=== PATIENT | female | born 1995 | race Caucasian/White ===

== ENCOUNTER 2017-04-16 22:32 | Emergency (ER) | payer SELFPAY ==
[2017-04-16 22:40] VITALS: BP 128/57; PULSE 89; TEMP 98; BMI 51.3
[2017-04-17] MEDS ORDERED: AZITHROMYCIN 250 MG TABLET PO ONE (00:05)
[2017-04-17] MEDS ORDERED: predniSONE 20 MG TABLET (UD) PO ONE (00:05)
--- NOTE | 2017-04-17 00:05 | PDOC ---
History of Present Illness <LandonRomeliablanca Ríos - Last Filed: 04/17/17 01:13> - General History Source: Patient Exam Limitations: No Limitations - History of Present Illness Initial Comments: 04/17/17 01:24 Patient is a 21 year old female with a significant past medical history of who presents to the ED with complaints of cold symptoms that began earlier this week. Patient reports being diagnosed with upper Respiratory infection by physician last week. She reports experiencing episodes of super pubic discomfort and dysuria secondary to cold symptoms. Patient reports experiencing intermittent nonproductive cough with occasional clear sputum. Patient is worried that she is not over her respiratory infection and that she possibly might have a UTI. 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 Denies any trauma to head. Denies SOB, chest pain. Denies coughing, nausea. Denies hematuria, constipation, diarrhea. Denies contact with sick individuals, out of state travel. Denies any other symptoms. Allergies: None Social history: Current smoker (2 cigarettes per day). No alcohol. No illicit drugs. Surgical history: None PMD: None <Zach Davis - Last Filed: 04/17/17 01:25> - General Chief Complaint: Cold Symptoms Stated Complaint: COLD SYMPTOMS Time Seen by Provider: 04/16/17 23:43 Past History - Past Medical History COPD: No Other medical history: anxiety - Suicide/Smoking/Psychosocial Hx Smoking History: Current every day smoker Have you smoked in the past 12 months: No Number of Cigarettes Smoked Daily: 2 Information on smoking cessation initiated: No Hx Alcohol Use: Yes Drug/Substance Use Hx: No <Romelia Navarrete - Last Filed: 04/17/17 01:13> <Zach Davis - Last Filed: 04/17/17 01:25> - Past Medical History Allergies/Adverse Reactions: Allergies Allergy/AdvReac Type Severity Reaction Status Date / Time No Known Allergies Allergy Verified 04/16/17 22:42 Home Medications: Ambulatory Orders Dextroamphetamine/Amphetamine [Adderall 10 mg Tablet] 30 mg PO DAILY 04/16/17 Escitalopram Oxalate [Lexapro -] 20 mg PO BID 04/16/17 Sulfamethoxazole/Trimethoprim [Bactrim Ds -] 1 tab PO BID #14 tablet 04/17/17 Review of Systems - Review of Systems Able to Perform ROS?: Yes Comments:: 04/17/17 01:24 CONSTITUTIONAL: Absent: fever, chills, diaphoresis, generalized weakness, malaise, loss of appetite HEENT: Absent: rhinorrhea, nasal congestion, throat pain, throat swelling, difficulty swallowing, mouth swelling, ear pain, eye pain, visual Changes CARDIOVASCULAR: Absent: chest pain, syncope, palpitations, irregular heart rate, lightheadedness , peripheral edema RESPIRATORY: Absent: cough, shortness of breath, dyspnea with exertion, orthopnea, wheezing, stridor, hemoptysis GASTROINTESTINAL: Absent: abdominal pain, abdominal distension, nausea, vomiting, diarrhea, constipation, melena, hematochezia GENITOURINARY: Absent: dysuria, frequency, urgency, hesitancy, hematuria, flank pain, genital pain MUSCULOSKELETAL: Absent: myalgia, arthralgia, joint swelling SKIN: Absent: rash, itching, pallor HEMATOLOGIC/IMMUNOLOGIC: Absent: easy bleeding, easy bruising, lymphadenopathy, frequent infections ENDOCRINE: Absent: unexplained weight gain, unexplained weight loss, heat intolerance, cold intolerance NEUROLOGIC: Absent: headache, focal weakness or paresthesias, dizziness, unsteady gait, seizure, mental status changes, bladder or bowel incontinence PSYCHIATRIC: Absent: anxiety, depression, suicidal or homicidal ideation, hallucinations. All Other Systems: Reviewed and Negative <Zach Davis - Last Filed: 04/17/17 01:25> *Physical Exam - Vital Signs Last Vital Signs Temp Pulse Resp BP Pulse Ox 98 F 89 19 128/57 98 04/16/17 22:38 04/16/17 22:38 04/16/17 22:38 04/16/17 22:38 04/16/17 22:38 <Romelia Navarrete - Last Filed: 04/17/17 01:13> - Vital Signs Last Vital Signs Temp Pulse Resp BP Pulse Ox 98 F 89 19 128/57 98 04/16/17 22:38 04/16/17 22:38 04/16/17 22:38 04/16/17 22:38 04/16/17 22:38 - Physical Exam Comments: 04/17/17 01:25 GENERAL: Well developed, well nourished. Awake and alert. No acute distress. HEENT: Normocephalic, atraumatic. PERRLA, EOMI. No conjunctival pallor. Sclera are non- icteric. Moist mucous membranes. Oropharynx is clear. NECK: Supple. Full ROM. No JVD. Carotid pulses 2+ and symmetric, without bruits. No thyromegaly. No lymphadenopathy. CARDIOVASCULAR: Regular rate and rhythm. No murmurs, rubs, or gallops. Distal pulses are 2+ and symmetric. PULMONARY: No evidence of respiratory distress. Lungs clear to auscultation bilaterally. No wheezing, rales or rhonchi. ABDOMINAL: +Obese. Soft. Non-tender. Non-distended. No rebound or guarding. No organomegaly. Normoactive bowel sounds. MUSCULOSKELETAL Normal range of motion at all joints. No bony deformities or tenderness. No CVA tenderness. EXTREMITIES: No cyanosis. No clubbing. No edema. No calf tenderness. SKIN: Warm and dry. Normal capillary refill. No rashes. No jaundice. NEUROLOGICAL: Alert, awake, appropriate. Cranial nerves 2-12 intact. No deficits to light touch and temperature in face, upper extremities and lower extremities. No motor deficits in the in face, upper extremities and lower extremities. Normoreflexic in the upper and lower extremities. Normal speech. Toes are down-going bilaterally. Gait is normal without ataxia. PSYCHIATRIC: Cooperative. Good eye contact. Appropriate mood and affect. <Zach Davis - Last Filed: 04/17/17 01:25> ED Treatment Course - ADDITIONAL ORDERS Additional order review: Laboratory Results 04/17/17 00:20 Urine Color Yellow Urine Appearance Cloudy Urine pH 5.0 Ur Specific [place] 1.031 Urine Protein 1+ H Urine Glucose (UA) Negative Urine Ketones Trace H Urine Blood 1+ H Urine Nitrite Positive Urine Bilirubin Negative Urine Urobilinogen Negative Urine WBC (Auto) 525 Urine RBC (Auto) 161 Ur Epithelial Cells Many Calcium Oxalate Crystal Moderate Urine Bacteria Few Hyaline Casts 4 Urine Mucus Many Urine HCG, Qual Negative - Medications Given in the ED: ED Medications Discontinued Medications Generic Name Dose Route Start Last Admin Trade Name Freq PRN Reason Stop Dose Admin Azithromycin 500 mg 04/17/17 00:05 04/17/17 00:36 Zithromax - PO 04/17/17 00:06 500 mg ONCE ONE Administration Prednisone 40 mg 04/17/17 00:05 04/17/17 00:36 Deltasone - PO 04/17/17 00:06 40 mg ONCE ONE Administration <Zach Davis - Last Filed: 04/17/17 01:25> *DC/Admit/Observation/Transfer <Romelia Navarrete - Last Filed: 04/17/17 01:13> - Attestations Scribe Attestion: 04/17/17 01:25 Documentation prepared by Zach Davis, acting as medical typist for Romelia Navarrete MD/DO. <Zach Davis - Last Filed: 04/17/17 01:25> Diagnosis at time of Disposition: UTI (urinary tract infection) Qualifiers: Urinary tract infection type: site unspecified Hematuria presence: without hematuria Qualified Code(s): N39.0 - Urinary tract infection, site not specified - Discharge Dispostion Disposition: HOME Condition at time of disposition: Stable - Prescriptions Prescriptions: Sulfamethoxazole/Trimethoprim [Bactrim Ds -] 1 tab PO BID #14 tablet - Patient Instructions Printed Discharge Instructions: DI for Urinary Tract Infection (UTI) Additional Instructions: please picker operator your medications at the [facility] pharmacy and take it as directed return to the ER for any worsening symptoms
[2017-04-17] MEDS ORDERED: predniSONE 20 MG TABLET (UD) ONE (00:14)
[2017-04-17] MEDS ORDERED: AZITHROMYCIN 250 MG TABLET ONE (00:14)
[2017-04-17 00:37] LABS: URINE APPEARANCE CLOUDY; URINE BILIRUBIN NEGATIVE (NEGATIVE); URINE BLOOD 1+ (NEGATIVE); URINE GLUCOSE (UA) NEGATIVE (NEGATIVE); URINE KETONE TRACE (NEGATIVE); URINE NITRITE POSITIVE (NEGATIVE); URINE UROBILINOGEN NEGATIVE mg/dL (0.2-1.0)
[2017-04-17 00:39] LABS: URINE COLOR YELLOW; URINE PROTEIN 1+ (NEGATIVE)
[2017-04-17 00:42] LABS: CALCIUM OXALATE CRYSTALS MODERATE /hpf (NONE SEEN); URINE BACTERIA FEW /hpf (NONE SEEN); URINE HYALINE CAST 4 /lpf; URINE MUCUS MANY; URINE RBC 161; URINE WBC 525
[2017-04-17] MEDS ORDERED: SULFAMETHOXAZOLE/TRIMETHOPRIM 800MG/160MG D.S. TABLET PO ONE (01:13)
[2017-04-17] MEDS ORDERED: SULFAMETHOXAZOLE/TRIMETHOPRIM 800MG/160MG D.S. TABLET ONE (01:26)
[2017-04-17 10:22] LABS: URINE LEUK ESTERASE 2+ (NEGATIVE)
== END 2017-04-17 00:38 | disposition home or self-care (01) ==
LOC: JER 22:32
DX: N39.0 Urinary tract infection, site not specified (principal); J06.9 Acute upper respiratory infection, unspecified
CPT/HCPCS: 81003; 81015; 84703; 99283-25